=== PATIENT | female | born 1955 | race Caucasian/White ===

== ENCOUNTER → 2018-05-18 | Outpatient (CLI) | payer MEDICARE ==
[~2018-05-18] MED LIST: ANAS1TAB PO; LAMO100T63 PO; LEVE500T8 PO; PHEN100C PO; SERT50TA28 PO
== END | disposition home or self-care (01) ==
LOC: CFH 12:53
PROVIDERS: ATTEND Family Medicine
DX: C50.912 Malignant neoplasm of unspecified site of left female breast (principal)
CPT/HCPCS: 77066; G0279

== ENCOUNTER 2018-08-01 20:24 | Emergency (ER) | payer MEDICARE ==
[~2018-08-01] VITALS: Ht 165.1 cm; Wt 77.3 kg
[2018-08-01] MEDS ORDERED: SODIUM CHLORIDE FLUSH 10ML SYR IVF ONE (21:00)
[2018-08-01 21:22] LABS: ALBUMIN 3.8 g/dL (3.4-5.0); ANION GAP 9 mmol/L (5-15); CALCIUM 8.9 mg/dL (8.5-10.1); CHLORIDE 108 mmol/L (98-107); CREATININE 0.67 mg/dL (0.55-1.02)
[2018-08-01 21:24] LABS: BASOPHILS # (AUTO) 0.05 x10^3/uL (0-0.1); BASOPHILS % (AUTO) 1 % (0-1); EOSINOPHILS # (AUTO) 0.01 x10^3/uL (0-0.4); EOSINOPHILS % (AUTO) 0 % (1-7); LYMPHOCYTES # (AUTO) 2.03 x10^3/uL (1-3.4); LYMPHOCYTES % (AUTO) 21 % (22-44); MD NO; MEAN CORPUSCULAR HGB CONC 34.1 g/dL (32.4-35.8); MEAN CORPUSCULAR VOLUME 99.8 fL (80-100); MEAN PLATELET VOLUME 8.9 fL (7.4-10.4); MONOCYTES # (AUTO) 1.07 x10^3/uL (0.2-0.8); MONOCYTES % (AUTO) 11 % (2-9); NEUTROPHILS % (AUTO) 67 % (42-75); PLATELET COUNT 266 x10^3/uL (130-400); RED BLOOD COUNT 4.53 x10^6/uL (3.82-5.3); RED CELL DISTRIBUTION WIDTH 12.7 % (9.6-15.2)
--- NOTE | 2018-08-01 21:32 | NUR ---
PT SLEEPING IN GURVERNER, CONVERSES WELL BUT FALLS BACK ASLEEP. AWATING LAB RESULTS. CALL LIGHT WITHIN REACH, NO NEEDS AT THIS TIME
[2018-08-01] MEDS ORDERED: PHENYTOIN 100 MG CAPSULE PO ONE (22:30)
[2018-08-01] MEDS ORDERED: PHENYTOIN 100 MG CAPSULE ONE (22:33)
[2018-08-01 22:37] VITALS: BP 124/73
--- NOTE | 2018-08-01 22:38 | NUR ---
AT BEDSIDE, PT TO BE DISCHARGED WITH TAXI VOUCHER. PT PUT CLOTHES ON AND AMBULATED IN HALLWAY WITH STEADY GAIT
== END 2018-08-01 22:56 | disposition home or self-care (01) ==
LOC: ED 20:43
DX: G40.319 Generalized idiopathic epilepsy and epileptic syndromes, intractable, without status epilepticus (principal); Z85.9 Personal history of malignant neoplasm, unspecified
CPT/HCPCS: 36415; 80048; 80185; 82040; 85025; 93005; 99284

== ENCOUNTER 2019-02-11 06:50 | Emergency (ER) | payer MEDICARE ==
[~2019-02-11] VITALS: Ht 165.1 cm; Wt 68.0 kg
[2019-02-11] MEDS ORDERED: LEVETIRACETAM 1,000 MG in SODIUM CHLORIDE 0.9% 100 ML IV ONE (07:00)
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
--- NOTE | 2019-02-11 07:27 | NUR ---
PT MEDICATED PER EMAR. PT TOLERATED WELL. PT'S AOX4. RESPS EVEN AND UNLABORED.
[2019-02-11 07:35] LABS: ANION GAP 7 mmol/L (5-15); CALCIUM 8.7 mg/dL (8.5-10.1); CHLORIDE 111 mmol/L (98-107); CREATININE 0.61 mg/dL (0.55-1.02)
[2019-02-11] MEDS ORDERED: POTASSIUM CHLORIDE 20 MEQ TAB.ER.PRT ONE (08:11)
--- NOTE | 2019-02-11 08:15 | NUR ---
PT MEDICATED PER EMAR. PT TOLERATED WELL.
[2019-02-11] MEDS ORDERED: POTASSIUM CHLORIDE 20 MEQ TAB.ER.PRT PO ONE (08:30)
[2019-02-11] MEDS ORDERED: FILTER 0.22 MICRON FOR PHENYTOIN IV PRN (09:30)
[2019-02-11] MEDS ORDERED: PHENYTOIN SODIUM 1,000 MG in SODIUM CHLORIDE 0.9% 100 ML IV ONE (09:30)
--- NOTE | 2019-02-11 09:37 | NUR ---
TASK RN: PT RESTING ON LYLA. AAZM. VSS. MEDICATED PER APR. SZ PRECAUTIONS REMAIN IN PLACE.
--- NOTE | 2019-02-11 10:14 | NUR ---
pt amb to br with steady gait.
--- NOTE | 2019-02-11 10:40 | NUR ---
PT C/O PAIN AROUND IV SITE. REDNESS/SWELLING NOTED AROUND LAC IV SITE NOTED. THIS RN EST NEW PIV ON R AC. MED INFUSING AT NEW IV SITE. PT TOLERATED WELL. PT'S AOX4. RESPS EVEN AND UNLABORED.
[2019-02-11 10:52] VITALS: BP 147/94
--- NOTE | 2019-02-11 10:52 | NUR ---
PT C/O PAIN AROUND NEW IV SITE WELL. EDMD NOTIFIED. THIS RN STOPPED IV MEDS AT THIS TIME.
[2019-02-11] MEDS ORDERED: PHENYTOIN 100 MG CAPSULE PO ONE (11:00)
[2019-02-11] MEDS ORDERED: PHENYTOIN 100 MG CAPSULE ONE (11:15)
--- NOTE | 2019-02-11 11:20 | NUR ---
PT IS NOT TOLERATED MED BY PIV D/T PAIN. EDMD NOTIFIED. PT MEDICATED PER EMAR. PT TOLERATED PO MED.
--- NOTE | 2019-02-11 11:59 | NUR ---
Patient given discharge instructions and they have confirmed that they understand the instructions.
== END 2019-02-11 12:00 | disposition home or self-care (01) ==
LOC: ED 09:05
DX: G40.409 Other generalized epilepsy and epileptic syndromes, not intractable, without status epilepticus (principal); Z79.01 Long term (current) use of anticoagulants
CPT/HCPCS: 36415; 80048; 80185; 96365; 96366; 96367; 99283; J1165; J1953

== ENCOUNTER 2020-09-22 11:01 | Emergency (ER) | payer MEDICARE ==
[~2020-09-22] VITALS: Ht 165.1 cm; Wt 68.2 kg
[~2020-09-22 11:01] MED LIST changes: +ASPI81TA45 PO; +ATOR40TA78 PO; +CARV6.2512 PO
[2020-09-22] MEDS ORDERED: ONDANSETRON 2MG/ML, 2ML ONE (11:27)
[2020-09-22] MEDS ORDERED: ONDANSETRON 2MG/ML, 2ML IVPush ONE (11:30)
[2020-09-22 11:36] LABS: BASOPHILS % (AUTO) 1 % (0-1); EOSINOPHILS % (AUTO) 0 % (1-7); LYMPHOCYTES % (AUTO) 9 % (22-44); MEAN CORPUSCULAR HEMOGLOBIN 33.9 pg (27.0-34.8); MEAN CORPUSCULAR HGB CONC 34.1 g/dL (32.4-35.8); MEAN PLATELET VOLUME 8.8 fL (7.4-10.4); MONOCYTES % (AUTO) 5 % (2-9); NEUTROPHILS % (AUTO) 86 % (42-75); PLATELET COUNT 276 x10^3/uL (130-400); RED BLOOD COUNT 4.11 x10^6/uL (3.82-5.3); RED CELL DISTRIBUTION WIDTH 12.4 % (9.6-15.2)
[2020-09-22 12:27] LABS: ALANINE AMINOTRANSFERASE 24 U/L (12-78); ALBUMIN 3.5 g/dL (3.4-5.0); ALKALINE PHOSPHATASE 85 U/L (45-117); ANION GAP 7 mmol/L (5-15); BILIRUBIN,TOTAL 0.6 mg/dL (0.2-1.0); CALCIUM 9.1 mg/dL (8.5-10.1); CHLORIDE 108 mmol/L (98-107); CREATININE 0.64 mg/dL (0.55-1.02); TOTAL PROTEIN 6.9 g/dL (6.4-8.2)
[2020-09-22 13:20] VITALS: BP 125/78
== END 2020-09-22 14:28 | disposition home or self-care (01) ==
LOC: ED 11:30
DX: S09.90XA Unspecified injury of head, initial encounter (principal); R56.9 Unspecified convulsions; Z20.822 Contact with and (suspected) exposure to COVID-19; M54.2 Cervicalgia; I10 Essential (primary) hypertension; X58.XXXA Exposure to other specified factors, initial encounter; Y93.89 Activity, other specified; Y92.89 Other specified places as the place of occurrence of the external cause; Y99.8 Other external cause status
CPT/HCPCS: 36415; 70450; 71045; 72125; 80053; 80320; 85025; 96374; 99285; J2405; U0003; U0005; G0480